=== PATIENT | male | born 1970 | race Caucasian/White ===

== ENCOUNTER → 2020-02-11 17:12 | Outpatient (CLI) | payer BC, SELFPAY | PROVIDERS: PCP Internal Medicine Adolescent Medicine; Visit Provider Internal Medicine Adolescent Medicine | DX: Z20.828 Contact with and (suspected) exposure to other viral communicable diseases (principal); U07.1 COVID-19 | CPT/HCPCS: U0003 ==

== ENCOUNTER → 2020-07-29 17:15 | Outpatient (CLI) | payer BC, SELFPAY ==
[2020-07-29 17:39] LABS: Basophils # 0.1 K/mm3 (0-0.2); Basophils % 0.7 % (0.1-2.0); Eosinophils # 0.4 K/mm3 (0.0-0.4); Eosinophils % 5.4 % (0.1-12.0); Hematocrit 52.3 % (42.0-52.0); Hemoglobin 17.6 g/dL (14.1-18.0); Lymphocytes # 1.8 K/mm3 (0.7-4.5); Mean Corpuscular HGB Conc 33.6 g/dL (31.8-35.4); Mean Corpuscular Hemoglobin 29.7 pg (27.0-31.2); Mean Corpuscular Volume 88.4 fl (80-94); Mean Platelet Volume 7.9 fl (7.4-10.4); Monocytes # 0.5 K/mm3 (0.1-1.0); Monocytes % 6.9 % (1.7-9.3); Neutrophils # 3.9 K/mm3 (1.8-7.8); Neutrophils % 59.9 % (37.0-80.0); Platelet Count 205 K/mm3 (142-424); Red Blood Count 5.92 M/mm3 (4.60-6.20); Red Cell Distribution Width 13.2 % (11.5-17.5); White Blood Count 6.5 K/mm3 (4.8-10.8)
[2020-07-29 18:10] LABS: Direct LDL Cholesterol 164.16 mg/dL (100-129)
[2020-07-29 18:21] LABS: Alanine Aminotransferase 49 U/L (12-78); Albumin Level 4.8 g/dl (3.5-5.0); Albumin/Globulin Ratio 1.8 (1.1-1.8); Alkaline Phosphatase 66 U/L (38-126); Aspartate Amino Transferase 43 U/L (17-59); Bilirubin,Total 1.4 mg/dl (0.2-1.3); Blood Urea Nitrogen 17 mg/dl (9-20); Calcium 9.4 mg/dl (8.4-10.2); Carbon Dioxide 30 mmol/L (22.0-30.0); Chloride 100 mmol/L (98-107); Chol/HDL Ratio 7.4 (1-3.5); Cholesterol 229 mg/dl (140-200); Estimated Glomerular Filt Rate 79 ml/min (>60); GFR (African American) 95 ML/MIN (>60); Globulin 2.6 g/dL (1.3-3.2); Glucose 84 mg/dl (74-100); HDL Cholesterol 31 mg/dl (40-60); Sodium 142 mmol/L (136-145); Total Protein,Serum 7.4 g/dl (6.3-8.2); Triglycerides 151 mg/dl (30-150); VLDL Cholesterol 30 mg/dL (0-40)
[2020-07-29 18:51] LABS: Thyroid Stimulating Hormone 0.71 uIU/mL (0.465-4.68)
== END ==
PROVIDERS: Visit Provider Nurse Practitioner Family
DX: Z00.00 Encounter for general adult medical examination without abnormal findings (principal); E03.9 Hypothyroidism, unspecified; E78.5 Hyperlipidemia, unspecified; R03.0 Elevated blood-pressure reading, without diagnosis of hypertension; R22.1 Localized swelling, mass and lump, neck
CPT/HCPCS: 80053; 80061; 84443; 85025

== ENCOUNTER → 2021-03-31 10:01 | Outpatient (CLI) | payer BC, SELFPAY ==
--- NOTE | 2021-03-31 10:07 | XR_ITS ---
FINAL REPORT CLINICAL HISTORY: RT SHOULDER PAIN FINDINGS: RIGHT SHOULDER: 3 views of the right shoulder were obtained. There is no acute fracture or dislocation. There is mild widening of the AC joint that is nonspecific. There is no soft tissue abnormality. IMPRESSION: Mild nonspecific widening of the AC joint. Mild AC joint injury cannot be excluded. Reviewed, Interpreted and Dictated by Desean Solis III, MD Transcribed by Peng Weahters Authenticated by Desean Solis III, MD on 03/31/2021 10:52:00 AM [facility]
== END ==
PROVIDERS: PCP Internal Medicine Adolescent Medicine; Visit Provider Nurse Practitioner Family
DX: M25.511 Pain in right shoulder (principal)
CPT/HCPCS: 73030

== ENCOUNTER → 2021-04-14 12:54 | Outpatient (CLI) | payer BC, SELFPAY ==
--- NOTE | 2021-04-14 12:59 | MR_ITS ---
FINAL REPORT CLINICAL HISTORY: PAIN IN RT SHOULDER FINDINGS: Multiplanar MR imaging of the right shoulder was performed without contrast. There is a focal tear at the anterior footprint of the supraspinatus tendon measuring 6 mm in AP dimension. There is mild a.c. joint arthrosis. A small amount of fluid is seen in the subacromial/subdeltoid bursa. There is a small subchondral cyst in the superior humeral head. The glenoid labrum is intact. The long head of the biceps tendon is intact. No significant glenohumeral joint effusion is seen. There is no evidence of fracture or dislocation. The musculature is intact. There is no evidence of soft tissue mass. IMPRESSION: Focal tear of the supraspinatus tendon. Reviewed, Interpreted and Dictated by Desean Solis III, MD Transcribed by Karine Chirinos Authenticated by Desean Solis III, MD on 04/28/2021 01:05:[address] [facility]
== END ==
PROVIDERS: PCP Internal Medicine Adolescent Medicine; Visit Provider Nurse Practitioner Family
DX: M25.511 Pain in right shoulder (principal)
CPT/HCPCS: 73221

== ENCOUNTER → 2021-05-30 09:11 | Outpatient (CLI) | payer BC, SELFPAY ==
--- NOTE | 2021-05-30 09:17 | XR_ITS ---
FINAL REPORT CLINICAL HISTORY: shoulder pain COMPARISON: Radiograph dated March 31, 2021 and MRI dated April 14, 2021 FINDINGS: RIGHT SHOULDER Three views demonstrate no acute fracture or dislocation. There are mild degenerative changes of the acromioclavicular joint. There is new mild elevation of the distal clavicle which is worrisome for mild acromioclavicular separation. No soft tissue abnormality is seen. IMPRESSION: New mild elevation of the distal clavicle, worrisome for mild acromioclavicular separation. Reviewed, Interpreted and Dictated by Desean Solis III, MD Transcribed by Jessica Rodrigues Authenticated by Desean Solis III, MD on 05/30/2021 10:18:23 AM [facility]
== END ==
PROVIDERS: PCP Internal Medicine Adolescent Medicine; Visit Provider Orthopaedic Surgery
DX: M25.511 Pain in right shoulder (principal)
CPT/HCPCS: 73030

== ENCOUNTER → 2022-04-14 10:08 | Outpatient (CLI) | payer BC, SELFPAY ==
[2022-04-14 10:51] LABS: Hemoglobin A1C 5.8 % (4.0-6.0)
[2022-04-14 11:09] LABS: Chloride 103 mmol/L (98-107)
[2022-04-14 11:10] LABS: Potassium 4.2 mmoL/L (3.5-5.1); Sodium 141 mmol/L (136-145)
[2022-04-14 11:12] LABS: Alanine Aminotransferase 41 U/L (12-78); Albumin Level 4.7 g/dl (3.5-5.0); Albumin/Globulin Ratio 1.8 (1.1-1.8); Alkaline Phosphatase 53 U/L (38-126); Anion Gap 13.2 mEq/L (5-15); Aspartate Amino Transferase 38 U/L (17-59); Bilirubin,Total 1.3 mg/dl (0.2-1.3); Blood Urea Nitrogen 21 mg/dl (9-20); Carbon Dioxide 29 mmol/L (22.0-30.0); Estimated Glomerular Filt Rate 101 ml/min (>60); GFR (African American) 122 ML/MIN (>60); Globulin 2.6 g/dL (1.3-3.2); Total Protein,Serum 7.3 g/dl (6.3-8.2)
[2022-04-14 11:13] LABS: Calcium 8.8 mg/dl (8.4-10.2); Chol/HDL Ratio 4.6 (1-3.5); Cholesterol 143 mg/dl (140-200); Glucose 108 mg/dl (74-100); HDL Cholesterol 31 mg/dl (40-60); Triglycerides 171 mg/dl (30-150); VLDL Cholesterol 34 mg/dL (0-40)
[2022-04-14 11:24] LABS: Direct LDL Cholesterol 94.91 mg/dL (100-129)
[2022-04-14 11:44] LABS: Thyroid Stimulating Hormone 1.04 uIU/mL (0.465-4.68)
== END ==
LOC: LAB 10:09
PROVIDERS: PCP Internal Medicine Adolescent Medicine; Visit Provider Internal Medicine Adolescent Medicine
DX: E03.9 Hypothyroidism, unspecified (principal); E11.9 Type 2 diabetes mellitus without complications; E78.5 Hyperlipidemia, unspecified
CPT/HCPCS: 36415; 80053; 80061; 83036; 84443

== ENCOUNTER → 2022-08-10 07:20 | Outpatient (CLI) | payer BC, SELFPAY ==
--- NOTE | 2022-08-10 07:20 | US_ITS ---
FINAL REPORT CLINICAL HISTORY: left parotid fna -- Jorje BEDOYA FINDINGS: Ultrasound guided left parotid mass biopsy. HISTORY: Thyroid mass. PROCEDURE: After informed consent was obtained and a time-out was performed, the patient was prepped and draped in usual sterile fashion over the left neck. Utilizing local anesthesia and sterile technique with a 25-gauge needle, access to the lesion was obtained. 6 passes were made. The patient received no conscious sedation. The patient tolerated procedure well and left the department in good condition. IMPRESSION: Status post ultrasound guided biopsy of a left parotid nodule without immediate complication. Films reviewed , interpreted and dictated by Dr. Solis Transcribed by Jorje Ayala PA-C. Reviewed, Interpreted and Dictated by Desean Solis III, MD Transcribed by AURELIANO Pinto Authenticated and [facility]
== END ==
LOC: RAD 07:20
PROVIDERS: PCP Internal Medicine Adolescent Medicine; Visit Provider Otolaryngology
DX: K11.8 Other diseases of salivary glands (principal)
CPT/HCPCS: 10005

== ENCOUNTER 2023-05-18 10:30 | Outpatient (CLI) | payer OTHER, SELFPAY ==
--- NOTE | 2023-05-18 10:41 | XR_ITS ---
PROCEDURE INFORMATION: Exam: XR Entire Spine Exam date and time: 05/18/2023 10:43 AM Age: 52 years old Clinical indication: Low back pain; Additional info: Right flank pain, low back pain at multiple sites TECHNIQUE: Imaging protocol: XR of the entire spine. Evaluation for scoliosis or surgical evaluation. Views: 6 or more views. COMPARISON: CR XR SHOULDER RT MIN 2V 05/30/2021 9:29 AM FINDINGS: Bones/joints: Bilateral L5 pars defects with grade 1 anterolisthesis of L5 on S1. No acute fracture. Mild degenerative disc disease throughout the thoracic and lumbar spine. Other findings: A 6 mm density projects over the region of the right kidney, though could be within the fecal stream. IMPRESSION: 1. No definite acute findings. 2. A 6 mm density projects over the region of the right kidney, though could be within the fecal stream. CT would better evaluate for renal calculi.
== END 2023-05-18 23:59 ==
LOC: RAD 10:35
PROVIDERS: PCP Internal Medicine Adolescent Medicine; Visit Provider Internal Medicine Adolescent Medicine
DX: R10.9 Unspecified abdominal pain (principal); M54.6 Pain in thoracic spine; M54.50 Low back pain, unspecified
CPT/HCPCS: 72084

== ENCOUNTER 2023-12-24 07:11 | Outpatient (CLI) | payer OTHER, SELFPAY ==
--- NOTE | 2023-12-24 07:21 | CT_ITS ---
FINAL REPORT TECHNIQUE: Thin section axial CT images of the facial bones and sinuses were obtained without contrast. Coronal and sagittal reformatted images were also obtained. This study was performed with techniques to keep radiation doses as low as reasonably achievable, (ALARA). Individualized dose reduction techniques using automated exposure control or adjustment of mA and/or kV according to the patient's size were employed. CLINICAL HISTORY: CHRONIC RECURRENT SINUSITIS COMPARISON: None FINDINGS: Mild mucosal thickening is present in the maxillary, ethmoid, sphenoid, and left frontal sinuses. No fluid levels are identified. There is narrowing of the ostiomeatal units bilaterally. 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 There is left septal deviation with a possible chronic fracture. There are calcifications inferior to the nasal spine that may represent chronic fracture fragments. There is significant soft tissue thickening adjacent to the anterior aspect of the nasal septum, with outward remodeling of the nasal bones. This may be secondary to polyposis or other soft tissue enlargement. IMPRESSION: Mild mucosal thickening of multiple paranasal sinuses as described, with narrowing of the ostiomeatal units bilaterally and a left alexus bullosa. There is left septal deviation with a possible chronic fracture of the nasal septum. There is significant soft tissue thickening adjacent to the anterior nasal septum, with outward remodeling of the nasal bones that may represent polyposis or other soft tissue enlargement. Reviewed, Interpreted and Dictated by Desean Solis III, MD Transcribed by Adriane Ramires Authenticated and [facility]
== END 2023-12-24 23:59 | disposition home or self-care (01) ==
PROVIDERS: PCP Internal Medicine Adolescent Medicine; Visit Provider Nurse Practitioner Family
DX: J32.9 Chronic sinusitis, unspecified (principal)
CPT/HCPCS: 70486